=== PATIENT | female | born 1930 | race Caucasian/White ===

== ENCOUNTER 2018-03-20 12:34 | Inpatient (IN) | payer BC, MEDICARE ==
[~2018-03-20] VITALS: Ht 167.6 cm; Wt 63.5 kg
[2018-03-20] VITALS (10 sets, daily range): BP systolic 89–149; BP diastolic 42–76
[~2018-03-20 12:34] MED LIST: AMLO2.5T2 PO; LEVO500T2 PO
--- NOTE | 2018-03-20 12:40 | NUR ---
[id number] FROM HOME: FOUND ON FLOOR, APPROX. DOWN TIME 2 DAYS. ALOC.LOW BP. NEG SOB. SKINS PALE, COOL, DRY. SAFETY MEASURES IN PLACE. LAB AT BEDSIDE. AWAITING MD PRICE.
[2018-03-20 12:59] LABS: BASOPHILS # (AUTO) 0.1 /CMM (0.0-0.2); BASOPHILS % (AUTO) 0.7 % (0.0-2.0); EOSINOPHILS % (AUTO) 0.1 % (0.0-6.0); HEMATOCRIT 39 % (33-45); HEMOGLOBIN 13.3 g/dL (11.5-14.8); LYMPHOCYTES # (AUTO) 0.8 /CMM (0.8-4.8); LYMPHOCYTES % (AUTO) 6.5 % (20.0-44.0); MEAN CORPUSCULAR HGB CONC 34 g/dl (31.0-36.0); MEAN CORPUSCULAR VOLUME 86 fL (82-100); MONOCYTES # (AUTO) 0.5 /CMM (0.1-1.30); MONOCYTES % (AUTO) 4.2 % (2.0-12.0); NEUTROPHILS # (AUTO) 10.3 /CMM (1.8-8.9); NEUTROPHILS % (AUTO) 88.5 % (43.0-81.0); PLATELET COUNT (AUTO) 169 /CMM (150-450); RDW COEFFICIENT OF VARIATION 13.4 (11.5-15.0); RED BLOOD CELL COUNT(AUTO) 4.58 MIL/uL (4.0-5.2); WHITE BLOOD COUNT (AUTO) 11.7 K/uL (4.3-11.0)
[2018-03-20] MEDS ORDERED: IV NS 0.9% 1,000 ML BAG IV ONE ×2 (13:00→14:00)
[2018-03-20 13:13] LABS: INR 1.05 (0.85-1.15)
[2018-03-20 13:15] LABS: ALANINE AMINOTRANSFERASE 105 U/L (12-78); ALKALINE PHOSPHATASE 75 U/L (46-116); ASPARTATE AMINOTRANSFERASE 129 U/L (15-37); BILIRUBIN,DIRECT 0.7 mg/dL (0.0-0.2); BILIRUBIN,TOTAL 1.6 mg/dL (0.2-1.0); CALCIUM, SERUM 10.1 mg/dL (8.5-10.1); CARBON DIOXIDE 27 mmol/L (21-32); CHLORIDE 111 mmol/L (98-107); CREATININE 0.9 mg/dL (0.6-1.3); GLUCOSE 98 mg/dL (74-106); SODIUM SERUM 150 mmol/L (136-145); UREA NITROGEN, BLOOD 70 mg/dL (7-18)
[2018-03-20 13:17] LABS: TROPONIN I < 0.017 ng/mL (0.00-0.056)
[2018-03-20 13:20] LABS: POTASSIUM 2.7 mmol/L (3.5-5.1)
--- NOTE | 2018-03-20 13:20 | NUR ---
BEIR HUGGER BLANKET APPLIED PER MD/ PT LOW TEMP.
[2018-03-20 13:28] LABS: APPEARANCE,URINE Cloudy (CLEAR); BILIRUBIN,URINE SMALL (NEGATIVE); BLOOD, URINE Trace-lysed Ery/uL (NEGATIVE); COLOR,URINE Yellow (YELLOW); KETONES,URINE 15 (NEGATIVE); LEUKOCYTE ESTERASE ,URINE Negative (NEGATIVE); NITRITE, URINE Negative (NEGATIVE); PH,URINE 5.5 (5.0-8.0); PROTEIN,URINE 100 mg/dl (NEGATIVE); UGLUCOSE Negative (NEGATIVE)
[2018-03-20 13:36] LABS: BACTERIA,URINE Few /HPF (None Seen); SQUAMOUS EPITHELIAL CELL,UR Few /HPF (None Seen); URINE AMORPHOUS URATE Moderate /HPF (None Seen); WBC,URINE 0-2 /HPF (0-3)
--- NOTE | 2018-03-20 13:48 | NUR ---
CALLED [facility] AND REQUESTED AN ICU BED FOR THIS PT.
[2018-03-20] MEDS ORDERED: POTASSIUM CL. PREMIX PERIPHER. 200 ML ONE (13:50)
[2018-03-20] MEDS: POTASSIUM CL. PREMIX PERIPHER. 50 ML IV SCH ×9 (14:00→22:43)
--- NOTE | 2018-03-20 14:01 | NUR ---
CALLED [facility] FOR PANEL CALL AND DR JUAREZ WAS PAGED.
[2018-03-20] MEDS ORDERED: AMLO10TA6 PO (14:04)
--- NOTE | 2018-03-20 14:14 | NUR ---
ASSIGNED TO ICU RM#: [id number], DX: ENCEPHALOPATHY, HYPOKALEMIA, DEHYDRATION, HYPOTHERMIA, ACCEPTING MD: DR JUAREZ.
[2018-03-20 14:30] LABS: CREATINE KINASE MB 75.4 ng/mL (0-3.6)
[2018-03-20] MEDS ORDERED: IV D5/0.45 NACL 1,000 ML IV PRN ×2 (14:33→14:42)
[2018-03-20] MEDS ORDERED: ACETAMINOPHEN 325 MG TABLET PO PRN (15:00)
[2018-03-20] MEDS ORDERED: ONDANSETRON HCL/PF 4 MG/2 ML VIAL IVP PRN (15:00)
[2018-03-20] MEDS ORDERED: ZOLPIDEM TARTRATE 5 MG TABLET PO PRN (15:00)
[2018-03-20] MEDS ORDERED: MORPHINE SULFATE INJ 4 MG/ML DISP.SYRIN IV PRN (15:00)
[2018-03-20] MEDS ORDERED: MAGNESIUM HYDROXIDE 30 ML UDC PO PRN (15:00)
[2018-03-20] MEDS ORDERED: Z GUARD REMEDY 2 OZ OINT TP PRN (15:00)
[2018-03-20] MEDS ORDERED: MAG HYDROX/AL HYDROX/SIMETH 30 ML UDC PO PRN (15:00)
[2018-03-20] MEDS ORDERED: HYDROCODONE/APAP 5/325MG 1 EACH TABLET PO PRN (15:00)
[2018-03-20] MEDS ORDERED: FEE PK DOSING 1 MIN EA MC ONE (15:04)
--- NOTE | 2018-03-20 15:10 | NUR ---
PATIENT ADMITTED FROM ER WITH DX OF AMS, ENCEPHALOPATHY, HYPOTHERMIA, HYPOKALEMIA. PATIENT AWAKE BUT DOES NOT FOLLOW SIMPLE COMMANDS. AFIB 80'S ON THE MONITOR. BP WNL. MULTIPLE BRUISING NOTED ON ARMS/LEGS/SHOULDER. BLACK NECROTIC WOUND ON SACRAL AREA. GARCIA CATHETER FG 20 INSERTED . COMPLETE BED BATH GIVEN. APPLIED GIUSEPPE HUGGER-CORE TEMP 88.2.
--- NOTE | 2018-03-20 15:30 | NUR ---
PATIENT SON AT BEDSIDE. PATIENT S/E BY DR. JUAREZ. SPOKE TO PATIENT SON REGARDING CONDITION AND PLAN OF CARE.
[2018-03-20] MEDS ORDERED: VANCOMYCIN 1 GM in IV D5W 250 ML IV ONE (16:00)
[2018-03-20] MEDS: PANTOPRAZOLE 40 MG VIAL IV SCH (16:01)
[2018-03-20] MEDS: PIPERACILLIN /TAZOBACTAM 2.25 G in IV D5W 50 ML IV SCH ×2 (17:10→23:26)
[2018-03-20] MEDS ORDERED: PIPERACILLIN /TAZOBACTAM 4.5 G in IV D5W 50 ML IV SCH (18:00)
[2018-03-20 18:45] LABS: ALANINE AMINOTRANSFERASE 84 U/L (12-78); ALBUMIN 2.4 g/dL (3.4-5.0); ALKALINE PHOSPHATASE 65 U/L (46-116); ASPARTATE AMINOTRANSFERASE 101 U/L (15-37); BILIRUBIN,TOTAL 1.6 mg/dL (0.2-1.0); CALCIUM, SERUM 8.1 mg/dL (8.5-10.1); CARBON DIOXIDE 18 mmol/L (21-32); CHLORIDE 114 mmol/L (98-107); CREATININE 0.9 mg/dL (0.6-1.3); GLUCOSE 138 mg/dL (74-106); SODIUM SERUM 151 mmol/L (136-145); TOTAL PROTEIN, SERUM 5.6 g/dL (6.4-8.2); UREA NITROGEN, BLOOD 68 mg/dL (7-18)
[2018-03-20 18:50] LABS: TROPONIN I 0.019 ng/mL (0.00-0.056)
--- NOTE | 2018-03-20 18:50 | NUR ---
RN CLOSING NOTES NO SIGNIFICANT CHANGE NOTED. IV LINES IN PLACE. TOLERATING IVF WELL. FC IN PLACE. KEPT CLEAN AND DRY. REPOSITIONED Q2. BLE ELEVATED. WILL ENDORSE FOR CONTINUITY OF CARE.
[2018-03-20 18:58] LABS: POTASSIUM 2.7 mmol/L (3.5-5.1)
--- NOTE | 2018-03-20 19:00 | NUR ---
RN NOTES POTASSIUM 2.[address] JUAREZ. PT GIVEN TOTAL KCL 40MEQ IV. PAGED. AWAITING FOR CALL BACK.
[2018-03-20 19:12] LABS: CREATINE KINASE, TOTAL 512 U/L (26-192)
[2018-03-20] MEDS ORDERED: DOSE PER PHARMACY VORIconazole/VFEND XX PRN (19:30)
--- NOTE | 2018-03-20 19:40 | NUR ---
RN NOTES RECEIVED PT ASLEEP ON BED IN RA NO SOB. SATURATION 94%. RESPONSIVE TO NAME, CORE TEMPERATURE WAS 95.6 DEG FAHRENHEIT. WITH BEAR HUGGER IN PLACED. IV SITE ON LAC G 20 AND RAC G 20 RUNNING WITH D5 1/2 NS @ 150 CC/HR. NO INFILTRATION FROM THE SITE SHOWN. TELE MONITOR REVEALS NSR. LATEST POTASSIUM 2.[address] JUAREZ WAITING FOR THE ORDER. REPOSITIONED PT COMFORTABLE. KEPT CLEAN AND DRY. WILL CONTINUE TO MONITOR.
[2018-03-20 19:46] LABS: CREATINE KINASE MB 54.4 ng/mL (0-3.6)
[2018-03-20] MEDS ORDERED: POTASSIUM CHLORIDE 10 MEQ/50 ML PREMIXED IVPB FOR PERIPHERAL LINE IV ONE (20:00)
[2018-03-20] MEDS: VORICONAZOLE 200 MG in IV D5W 250 ML IV SCH (20:41)
[2018-03-20] MEDS: Potassium Chloride 40 MEQ in IV D5W 1,000 ML IV PRN (21:17)
--- NOTE | 2018-03-20 21:30 | NUR ---
RN NOTES INGA DIAZ REMOVED TEMP 97.9 WILL MONITOR CLOSELY. PT REMAINED ASLEEP AT THIS TIME.
[2018-03-20] MEDS ORDERED: IV NS 0.9% 500 ML IV ONE (23:39)
[2018-03-20] MEDS ORDERED: IOHEXOL-300 100 ML VIAL IV ONE (23:39)
[2018-03-20] MEDS ORDERED: CT SWABBABLE VALVE TRANS SET 1 EA INFUS.SET MC ONE (23:39)
[2018-03-21] VITALS (23 sets, daily range): BP systolic 88–116; BP diastolic 37–61
[2018-03-21] MEDS: POTASSIUM CL. PREMIX PERIPHER. 50 ML IV SCH ×3 (00:28→12:58)
--- NOTE | 2018-03-21 00:36 | NUR ---
RN NOTES ACCOMPANIED PT TO RADIOLOGY DEPARTMENT FOR CT ABDOMEN PELVIS ,CT HEAD AND CT NECK. TOLERATED WELL WITHOUT ASE FROM THE CONTRAST AT THIS TIME. NO ACUTE RESP DISTRESS. TRANSFERRED SAFELY FROM BED. WILL CONT. TO MONITOR.
[2018-03-21 04:43] LABS: MONOCYTES # (AUTO) 0.5 /CMM (0.1-1.30)
[2018-03-21 04:49] LABS: BASOPHILS % (AUTO) 0.2 % (0.0-2.0); HEMATOCRIT 36 % (33-45); HEMOGLOBIN 12.1 g/dL (11.5-14.8); LYMPHOCYTES # (AUTO) 0.8 /CMM (0.8-4.8); LYMPHOCYTES % (AUTO) 10.5 % (20.0-44.0); MEAN CORPUSCULAR HGB CONC 33 g/dl (31.0-36.0); MEAN CORPUSCULAR VOLUME 90 fL (82-100); MONOCYTES % (AUTO) 6.3 % (2.0-12.0); NEUTROPHILS # (AUTO) 6.6 /CMM (1.8-8.9); PLATELET COUNT (AUTO) 152 /CMM (150-450); RDW COEFFICIENT OF VARIATION 14.5 (11.5-15.0); RED BLOOD CELL COUNT(AUTO) 4.05 MIL/uL (4.0-5.2)
[2018-03-21 05:06] LABS: CALCIUM, SERUM 8.2 mg/dL (8.5-10.1); CARBON DIOXIDE 23 mmol/L (21-32); CHLORIDE 114 mmol/L (98-107); CREATININE 1.1 mg/dL (0.6-1.3); GLUCOSE 117 mg/dL (74-106); MAGNESIUM 2.3 mg/dL (1.8-2.4); PHOSPHORUS 3.5 mg/dL (2.5-4.9); POTASSIUM 3.4 mmol/L (3.5-5.1); SODIUM SERUM 148 mmol/L (136-145); UREA NITROGEN, BLOOD 60 mg/dL (7-18)
[2018-03-21 05:11] LABS: CHOLESTEROL 142 mg/dL (<200); HDL CHOLESTEROL 51 mg/dL (40-60); LDL 86 mg/dL (0-99); TRIGLYCERIDES 69 mg/dL (30-150)
[2018-03-21] MEDS: PIPERACILLIN /TAZOBACTAM 2.25 G in IV D5W 50 ML IV SCH ×3 (05:23→17:10)
--- NOTE | 2018-03-21 06:50 | NUR ---
RN NOTES PT IN STABLE CONDITION MORE AWAKE AND RESPONSIVE THAN YESTERDAY. NO SIGNIFICANT CLARY. GOT REPORT FROM LAB THAT PT BLOOD CULTURE IS GRAM POSITIVE COCCI. INFORMED MD THAT ABOUT RESULT NNO. PT TEMP AT THIS TIME IS 96.9 WARM BLANKET RENDERED. WILL ENDORSED CONTINUITY OF CARE TO AM NURSE.
--- NOTE | 2018-03-21 07:15 | NUR ---
NEUROSURGICAL PHYSICIAN ASSISTANT NOTES RECEIVED PATIENT AOX1 , FOLLOW COMMANDS , NOT IN ACUTE DISTRESS , RESPIRATIONS EVEN AND UNLABORED WITH SPO2 OF 100% VIA RA , SR 85 ON BEDSIDE MONITOR , FC DRAINING WELL VIA GRAVITY WITH MACRINA COLORED URINE , IV OF L AC # 20 AND R AC # 20 PATENT AND INTACT WITH D5W WITH 40 MEQ KCL @ 75ML/HR INFUSING WELL , ALL NEEDS ATTENDED , BED ON LOW AND LOCKED POSITION , SIDE RAILS X2 ,CALL LIGHT WITHIN REACH , HOB @ 45 , WILL CONTINUE TO MONITOR
--- NOTE | 2018-03-21 08:42 | NUR ---
MOLD UNLOADER NOTES SEEN AND EVALUATED BY WOUND NURSE DANE , AWAITING FOR WOUND TREATMENT ORDERS
--- NOTE | 2018-03-21 08:48 | NUR ---
WOUND CARE CONSULT: PT PRESENTS WITH MULTIPLE BRUISES AND UNSTAGEABLE ULCER TO SACRUM, PRESENT ON ADMISSION. SKIN TAG NOTED TO SACRAL AREA WELL. RT LATERAL FOOT CALLUS NOTED. ALL SKIN PROTECTION AND WOUND CARE RECOMMENDATIONS DISCUSSED WITH NURSING STAFF. PT ON FIRST STEP MATTRESS. RECOMMEND SURGICAL CONSULT. WILL SEE PRN. ESTRADA IN AGREEMENT WITH PLAN OF CARE. Addendum: 03/21/18 at 0850 by DANE OMALLEY WNDNU Amended: Links added.
[2018-03-21] MEDS: VORICONAZOLE 200 MG in IV D5W 250 ML IV SCH ×2 (08:49→21:30)
--- NOTE | 2018-03-21 11:00 | NUR ---
ENVIRONMENTAL ENGINEER NOTES TRANSFEREE PT TO MRI TRAILER VIA ACLS PROTOCOL , MRI CHECKLIST DONE AND VERIFIED BY DAUGHTER AT BEDSIDE, PT STABLE ,AFEBRILE , WILL CONTINUE TO MONITOR
[2018-03-21] MEDS: VANCOMYCIN 0.75 GM in IV D5W 250 ML IV SCH (11:35)
--- NOTE | 2018-03-21 12:15 | NUR ---
ASSEMBLIES AND INSTALLATIONS INSPECTOR NOTES SEEN AND EVALUATED BY DR JUAREZ , DISCUSSED LABS , CHEST XRAY , V/S STABLE , AFEBRILE , PATIENT STILL WITH ALTERED MENTAL STATUS , AWAKE , LETHARGIC , ABLE TO FOLLOW SIMPLE COMMANDS , PENDING MRI OF THE BRAIN RESULT , VERIFIED IF DIET CAN BE CHANGE TO NPO DUE TO AMS , PER MD ORDER SWALLOW EVAL , SOCIAL SERVICE AND CASE MANAGEMENT CONSULT FOR PLACEMENT . ORDERS CARRIED OUT
[2018-03-21] MEDS: Potassium Chloride 40 MEQ in IV D5W 1,000 ML IV PRN (14:33)
[2018-03-21] MEDS: PANTOPRAZOLE 40 MG VIAL IV SCH (14:35)
--- NOTE | 2018-03-21 19:30 | NUR ---
CONDITIONING YARD SUPERVISOR INITIAL NOTE RECEIVED PATIENT ASLEEP, AROUSABLE, ORIENTED TO SELF, SAMOAN SPEAKING. DENIES PAIN OR DISCOMFORT, ON RA, SPO2 97%. ON TELE MONITOR SR. SKIN WARM AND DRY TO TOUCH. F/C PATENT AND INTACT, DRAINING BY GRAVITY. IVF RUNNING. HOB ELEVATED. TURNED AND REPOSITIONED. SIDE RAILS UP AND LOCKED. BED KEPT LOWEST POSITION. SIDE RAILS UP AND LOCKED. BED KEPT AT LOWEST POSITION. CALL LIGHT KEPT WITHIN EASY REACH. WILL CONTINUE TO MONITOR.
[2018-03-22] VITALS (16 sets, daily range): BP systolic 98–145; BP diastolic 43–75
[2018-03-22] MEDS: PIPERACILLIN /TAZOBACTAM 2.25 G in IV D5W 50 ML IV SCH ×3 (00:34→11:52)
[2018-03-22] MEDS: VANCOMYCIN 0.75 GM in IV D5W 250 ML IV SCH (04:22)
[2018-03-22 04:34] LABS: BASOPHILS % (AUTO) 0.3 % (0.0-2.0); EOSINOPHILS % (AUTO) 0.7 % (0.0-6.0); HEMATOCRIT 34 % (33-45); HEMOGLOBIN 11.7 g/dL (11.5-14.8); LYMPHOCYTES # (AUTO) 1.8 /CMM (0.8-4.8); MEAN CORPUSCULAR HGB CONC 34 g/dl (31.0-36.0); MEAN CORPUSCULAR VOLUME 89 fL (82-100); MONOCYTES # (AUTO) 0.4 /CMM (0.1-1.30); MONOCYTES % (AUTO) 4.9 % (2.0-12.0); NEUTROPHILS # (AUTO) 6.3 /CMM (1.8-8.9); NEUTROPHILS % (AUTO) 73.1 % (43.0-81.0); PLATELET COUNT (AUTO) 130 /CMM (150-450); RDW COEFFICIENT OF VARIATION 14.8 (11.5-15.0); RED BLOOD CELL COUNT(AUTO) 3.86 MIL/uL (4.0-5.2); WHITE BLOOD COUNT (AUTO) 8.6 K/uL (4.3-11.0)
[2018-03-22 04:51] LABS: CALCIUM, SERUM 8.4 mg/dL (8.5-10.1); CARBON DIOXIDE 23 mmol/L (21-32); CHLORIDE 112 mmol/L (98-107); CREATININE 0.9 mg/dL (0.6-1.3); GLUCOSE 133 mg/dL (74-106); MAGNESIUM 2.1 mg/dL (1.8-2.4); PHOSPHORUS 2.2 mg/dL (2.5-4.9); POTASSIUM 3.6 mmol/L (3.5-5.1); SODIUM SERUM 144 mmol/L (136-145); UREA NITROGEN, BLOOD 34 mg/dL (7-18)
--- NOTE | 2018-03-22 07:15 | NUR ---
LAWN SERVICE MANAGER NOTES RECEIVED PATIENT AOX1-2 MORE AWAKE , NOT IN ACUTE DISTRESS , RESPIRATIONS EVEN AND UNLABORED WITH SPO2 OF 100% VIA RA , SR 80 ON BEDSIDE MONITOR , FC DRAINING WELL VIA GRAVITY WITH MACRINA COLORED URINE , IV OF L AC # 20 AND L WRIST # 20 PATENT AND INTACT WITH D5W WITH 40 MEQ KCL @ 75ML/HR INFUSING WELL , ALL NEEDS ATTENDED , BED ON LOW AND LOCKED POSITION , SIDE RAILS X2 ,CALL LIGHT WITHIN REACH , BED ALARM MADE AUDIBLE , HOB @ 45 , WILL CONTINUE TO MONITOR
--- NOTE | 2018-03-22 07:19 | NUR ---
CURRICULUM AND ASSESSMENT DIRECTOR CLOSING NOTE NO SIGNIFICANT CHANGES OVERNIGHT. ALL DUE MEDS GIVEN. REORIENTED NEEDED. NO RESPIRATORY DISTRESS NOTED. F/C PATENT AND INTACT, DRAINING BY GRAVITY. KEPT CLEAN AND DRY. TURNED AND REPOSITIONED Q2 AND PRN. HOB ELEVATED. SIDE RAILS UP AND LOCKED. BED KEPT AT LOWEST POSITION. FALL PRECAUTIONS OBSERVED. CONTINUITY OF CARE ENDORSED TO AM NURSE.
[2018-03-22] MEDS: Potassium Chloride 40 MEQ in IV D5W 1,000 ML IV PRN (07:31)
[2018-03-22] MEDS: VORICONAZOLE 200 MG in IV D5W 250 ML IV SCH (09:14)
--- NOTE | 2018-03-22 09:48 | NUR ---
SERVICE LEARNING COORDINATOR NOTES DAUGHTER ACCOMPANIED TO CASE MANAGEMENT OFFICE TO REQUEST FOR POSSIBLE TRANSFER AT [facility] .
[2018-03-22] MEDS ORDERED: IV D5/ 0.9% NACL 1,000 ML IV PRN (10:16)
[2018-03-22] MEDS: Potassium Phosphate meq 11 MEQ in IV NS 0.9% 100 ML IV SCH ×2 (10:51→13:10)
--- NOTE | 2018-03-22 11:25 | NUR ---
HOOP PUNCH AND COILER OPERATOR NOTES DR JUAREZ AT BEDSIDE DISCUSSING PLAN OF CARE , NOTIFIED REGARDING LABS AND LATEST V/S , PENDING SWALLOW EVAL , PT IS MORE AWAKE ALERT X1-2 CONFUSED , AFEBRILE , AWARE .
--- NOTE | 2018-03-22 14:11 | NUR ---
DIRECTOR OF UNDERGRADUATE ADMISSIONS NOTES REPORT GIVEN TO LILLIAN RUDD FROM [facility] FOR CONTINUITY OF CARE , ALL QUESTIONS ANSWERED .
[2018-03-22] MEDS: PANTOPRAZOLE 40 MG VIAL IV SCH (14:22)
--- NOTE | 2018-03-22 15:36 | NUR ---
BAG MACHINE OPERATOR HELPER NOTES PATIENT STABLE AT THIS TIME PRIOR TO DISCHARGE , V/S STABLE , AFEBRILE , NOT IN ACUTE DISTRESS , RESPIRATIONS EVEN AND UNLABORED WITH SPO2 OF 100% VIA RA , SR 80 ON BEDSIDE MONITOR , FC DRAINING WELL VIA GRAVITY WITH MACRINA COLORED URINE , IV OF R FA # 20 AND L WRIST # 20 PATENT AND INTACT SL , SKIN ASSESSMENT DONE , TAKE PICTURES AND PLACED IN THE CHART . DISCHARGE / TRANSFER INSTRUCTION GIVEN TO SON VERBALIZED UNDERSTANDING . , NO BELONGINGS NOTED , REPORT GIVEN TO EMS FOR PT TRANSFER
== END 2018-03-22 15:41 | disposition short-term general hospital (02) | DRG 689 ==
LOC: ER 12:38 → ICU 14:24
PROVIDERS: ADMIT Internal Medicine; ATTEND Internal Medicine
DX: N39.0 Urinary tract infection, site not specified (principal); G92 Toxic encephalopathy; M62.82 Rhabdomyolysis; E44.0 Moderate protein-calorie malnutrition; N17.9 Acute kidney failure, unspecified; B48.8 Other specified mycoses; E87.0 Hyperosmolality and hypernatremia; E86.0 Dehydration; E87.6 Hypokalemia; D72.829 Elevated white blood cell count, unspecified; I10 Essential (primary) hypertension; M81.0 Age-related osteoporosis without current pathological fracture; M19.90 Unspecified osteoarthritis, unspecified site; Z79.899 Other long term (current) drug therapy; E78.5 Hyperlipidemia, unspecified; F03.90 Unspecified dementia, unspecified severity, without behavioral disturbance, psychotic disturbance, mood disturbance, and anxiety; R29.6 Repeated falls; Z91.81 History of falling; Z87.891 Personal history of nicotine dependence; Z86.73 Personal history of transient ischemic attack (TIA), and cerebral infarction without residual deficits; Z80.8 Family history of malignant neoplasm of other organs or systems; Z83.3 Family history of diabetes mellitus; Z80.3 Family history of malignant neoplasm of breast; W18.30XA Fall on same level, unspecified, initial encounter; Y92.009 Unspecified place in unspecified non-institutional (private) residence as the place of occurrence of the external cause; L89.159 Pressure ulcer of sacral region, unspecified stage; Z98.890 Other specified postprocedural states; T68.XXXA Hypothermia, initial encounter; B96.20 Unspecified Escherichia coli [E. coli] as the cause of diseases classified elsewhere; I70.0 Atherosclerosis of aorta; R13.10 Dysphagia, unspecified; K57.30 Diverticulosis of large intestine without perforation or abscess without bleeding; K44.9 Diaphragmatic hernia without obstruction or gangrene; I67.2 Cerebral atherosclerosis; K80.20 Calculus of gallbladder without cholecystitis without obstruction
CPT/HCPCS: 36415; 70450-TC; 70460-TC; 70551-TC; 71045-TC; 72125-TC; 72170-TC; 74178; 76700-TC; 80048-TC; 80053-TC; 80061-TC; 80076-TC; 81000-TC; 82550-TC; 82553-TC; 83605-TC; 83735-TC; 84100-TC; 84484-TC; 85025-TC; 85730-TC; 86850-TC; 87040-TC; 87081-TC; 87086-TC; 87186-TC; 93307-TC; A4606; A6253; A6403; C9113; J2543; J3370; J3465; J3480; J3490; J7030; J7040; J7042; J7060; J7070; Q9967; Z7610